=== PATIENT | female | born 1950 ===

== ENCOUNTER 2019-01-09 05:20 | Day surgery (SDC) | payer OTHER ==
[~2019-01-09 05:20] MED LIST: HYZAAR 50-12.51 EACH
[2019-01-09] MEDS ORDERED: PERCOCET 5-3251 EACH PO (10:40)
[2019-01-09] MEDS ORDERED: POLY119PG PO (10:40)
[2019-01-09] MEDS ORDERED: SURFAK240 M1 PO ×2 (10:41)
[2019-01-09] MEDS ORDERED: CIPRO500 MG PO (10:42)
== END 2019-01-09 13:20 | disposition home or self-care (01) ==
LOC: CIR.AMB 05:20
DX: K80.10 Calculus of gallbladder with chronic cholecystitis without obstruction (principal); K42.0 Umbilical hernia with obstruction, without gangrene

== ENCOUNTER 2019-12-18 05:50 | Day surgery (SDC) | payer OTHER ==
[~2019-12-18 05:50] MED LIST changes: +CIPRO500 MG PO; +LOSARTAN POTASS50 MG PO; +PERCOCET 5-3251 EACH PO; +POLY119PG PO; +SURFAK240 M1 PO
[2019-12-18] MEDS ORDERED: POLY119PG PO (10:17)
[2019-12-18] MEDS ORDERED: NEURONTIN600 M1 PO (10:18)
[2019-12-18] MEDS ORDERED: PERCOCET 5-3251 EACH PO (10:19)
[2019-12-18] MEDS ORDERED: SURFAK240 M1 PO (10:21)
[2019-12-18] MEDS ORDERED: CIPRO500 MG PO (10:21)
== END 2019-12-18 17:30 | disposition home or self-care (01) ==
LOC: CIR.AMB 05:50
PROVIDERS: ATTEND Surgery
DX: K42.0 Umbilical hernia with obstruction, without gangrene (principal); K43.0 Incisional hernia with obstruction, without gangrene; Z20.828 Contact with and (suspected) exposure to other viral communicable diseases